=== PATIENT | female | born 1935 | race Caucasian/White ===

== ENCOUNTER 2023-07-20 18:12 | Emergency (ER) | payer MEDICARE ==
[~2023-07-20] VITALS: Ht 152.4 cm; Wt 62.1 kg
[2023-07-20 19:44] LABS: BASOPHILS # (AUTO) 0.05 K/uL (0.00-0.20); BASOPHILS % (AUTO) 0.7 % (0.0-5.0); EOSINOPHILS # (AUTO) 0.13 K/uL (0.00-0.70); EOSINOPHILS % (AUTO) 1.9 % (0.0-8.0); HEMATOCRIT 43.2 % (36-48); IMMATURE GRANULOCYTE ABSOLUTE 0.04 K/uL (0-1); LYMPHOCYTES % (AUTO) 29.4 % (21.0-51.0); MEAN CORPUSCULAR HEMOGLOBIN 34.2 pg (27.0-33.0); MEAN CORPUSCULAR HGB CONC 33.6 g/dL (32.0-36.0); MEAN CORPUSCULAR VOLUME 101.9 fL (79-99); MONOCYTES # (AUTO) 0.6 K/uL (0.1-1.0); MONOCYTES % (AUTO) 8.3 % (3.0-13.0); NEUTROPHILS # (AUTO) 4.1 K/uL (1.8-7.7); NEUTROPHILS % (AUTO) 59.1 % (40.0-77.0); PLATELET COUNT (AUTO) 189 K/uL (130-400); RED BLOOD CELL COUNT(AUTO) 4.24 MIL/uL (4.00-5.50); RED CELL DISTRIBUTION WIDTH 12.6 % (11.0-15.5)
[2023-07-20 20:03] LABS: ALBUMIN 3.3 g/dL (3.5-5.0); BILIRUBIN,TOTAL 0.3 mg/dL (0.2-1.0); CREATININE 0.7 mg/dL (0.5-1.0); POTASSIUM 4.3 mmol/L (3.5-5.1); TOTAL PROTEIN, SERUM 6.6 g/dL (6.0-8.3)
[2023-07-20 21:27] VITALS: BP 136/61; PULSE 63; RESP 18; O2SAT 97
== END 2023-07-20 21:28 | disposition home or self-care (01) ==
LOC: EDH 18:12
DX: S00.93XA Contusion of unspecified part of head, initial encounter (principal); F10.129 Alcohol abuse with intoxication, unspecified; W18.39XA Other fall on same level, initial encounter; Y93.89 Activity, other specified; Y92.89 Other specified places as the place of occurrence of the external cause; Y99.8 Other external cause status
CPT/HCPCS: 36415; 70450; 71045; 71250; 72125; 74176; 80053; 85025; 93005

== ENCOUNTER 2023-12-14 18:08 | Observation (INO) | payer MEDICARE ==
[~2023-12-14] VITALS: Ht 162.6 cm; Wt 59.9 kg
[2023-12-14 18:22] VITALS: O2SAT 98
[2023-12-14] MEDS: LIDOCAINE HCL 1% 20 ML VIAL INJ STA (18:40)
[2023-12-14] MEDS: DIPH,PERTUSS(ACELL),TET VAC/PF 0.5 ML VIAL IM ONE (18:42)
[2023-12-14 19:46] LABS: BASOPHILS # (AUTO) 0.03 K/uL (0.00-0.20); BASOPHILS % (AUTO) 0.4 % (0.0-5.0); EOSINOPHILS # (AUTO) 0.11 K/uL (0.00-0.70); EOSINOPHILS % (AUTO) 1.5 % (0.0-8.0); HEMATOCRIT 45.5 % (36-48); IMMATURE GRANULOCYTE ABSOLUTE 0.01 K/uL (0-1); LYMPHOCYTES # (AUTO) 2.4 K/uL (1.0-4.8); LYMPHOCYTES % (AUTO) 32.9 % (21.0-51.0); MEAN CORPUSCULAR HEMOGLOBIN 32.6 pg (27.0-33.0); MEAN CORPUSCULAR HGB CONC 33.8 g/dL (32.0-36.0); MEAN CORPUSCULAR VOLUME 96.4 fL (79-99); MONOCYTES # (AUTO) 0.5 K/uL (0.1-1.0); MONOCYTES % (AUTO) 7.3 % (3.0-13.0); NEUTROPHILS # (AUTO) 4.2 K/uL (1.8-7.7); NEUTROPHILS % (AUTO) 57.8 % (40.0-77.0); PLATELET COUNT (AUTO) 177 K/uL (130-400); RED BLOOD CELL COUNT(AUTO) 4.72 MIL/uL (4.00-5.50); RED CELL DISTRIBUTION WIDTH 12.5 % (11.0-15.5); WHITE BLOOD COUNT (AUTO) 7.2 K/uL (4.8-10.8)
[2023-12-14] MEDS ORDERED: BUPR100T13 PO (19:53)
[2023-12-14] MEDS ORDERED: DONE5TAB33 PO (19:55)
[2023-12-14] MEDS ORDERED: AMLO-257 PO (19:56)
[2023-12-14] MEDS ORDERED: SERT-439 PO (19:56)
[2023-12-14] MEDS ORDERED: MEMA10TA21 PO (19:57)
[2023-12-14] MEDS: DEXTROSE 5 % AND 0.9 % NACL 1,000 ML IV ONE (20:01)
[2023-12-14] MEDS: THIAMINE HCL 100 MG/ML 2ML VIAL IVP ONE (20:01)
[2023-12-14 20:05] LABS: CREATININE 0.8 mg/dL (0.5-1.0); POTASSIUM 3.6 mmol/L (3.5-5.1)
[2023-12-14] MEDS ORDERED: acetaMINOPHEN 650 MG SUPPOSITORY RC PRN (20:30)
[2023-12-14] MEDS ORDERED: hydrALAZine 20MG/ML VIAL IV PRN (20:30)
[2023-12-14] MEDS ORDERED: TEMAZepam 15 MG CAPSULE PO PRN (20:30)
[2023-12-14] MEDS ORDERED: ondanSETRON 4MG INJ IVP PRN (20:30)
[2023-12-14] MEDS ORDERED: LACTULOSE 20 GM/30 ML UDCUP PO PRN (20:30)
[2023-12-14] MEDS ORDERED: doCUSate SODIUM 100 MG CAP PO PRN (20:30)
[2023-12-14] MEDS: INSULIN humuLIN R 100 UNIT/ML 3ML SQ SCH (21:00)
[2023-12-14 21:30] VITALS: BP 167/79; PULSE 93; RESP 19; TEMP 98
[2023-12-14 21:54] VITALS: BP 135/69
[2023-12-14] MEDS: acetaMINOPHEN 325 MG TAB PO PRN (22:23)
[2023-12-15 01:00] VITALS: BP 135/70; PULSE 71; RESP 20; TEMP 97.1
[2023-12-15] MEDS: ketOROlac 30MG VIAL (30MG/ML) IVP ONE (02:48)
[2023-12-15 05:40] LABS: BASOPHILS # (AUTO) 0.04 K/uL (0.00-0.20); BASOPHILS % (AUTO) 0.5 % (0.0-5.0); EOSINOPHILS # (AUTO) 0.14 K/uL (0.00-0.70); EOSINOPHILS % (AUTO) 1.9 % (0.0-8.0); HEMATOCRIT 44.7 % (36-48); IMMATURE GRANULOCYTE ABSOLUTE 0.02 K/uL (0-1); LYMPHOCYTES # (AUTO) 2.1 K/uL (1.0-4.8); MEAN CORPUSCULAR HEMOGLOBIN 32.5 pg (27.0-33.0); MEAN CORPUSCULAR HGB CONC 33.8 g/dL (32.0-36.0); MEAN CORPUSCULAR VOLUME 96.3 fL (79-99); MONOCYTES # (AUTO) 0.6 K/uL (0.1-1.0); MONOCYTES % (AUTO) 8.5 % (3.0-13.0); NEUTROPHILS # (AUTO) 4.6 K/uL (1.8-7.7); NEUTROPHILS % (AUTO) 60.8 % (40.0-77.0); PLATELET COUNT (AUTO) 163 K/uL (130-400); RED BLOOD CELL COUNT(AUTO) 4.64 MIL/uL (4.00-5.50); RED CELL DISTRIBUTION WIDTH 12.4 % (11.0-15.5); WHITE BLOOD COUNT (AUTO) 7.5 K/uL (4.8-10.8)
[2023-12-15 05:43] LABS: APPEARANCE,URINE CLEAR (CLEAR); BILIRUBIN,URINE NEGATIVE (NEGATIVE); COLOR,URINE COLORLESS (YELLOW); GLUCOSE, URINE (UA) NEGATIVE (NEGATIVE); KETONES,URINE NEGATIVE (NEGATIVE); LEUKOCYTE ESTERASE ,URINE NEGATIVE Leu/uL (NEGATIVE); NITRATE,URINE NEGATIVE (NEGATIVE); OCCULT BLOOD,URINE NEGATIVE (NEGATIVE); PH,URINE 7.5 (5.0-8.0); PROTEIN,URINE NEGATIVE (NEGATIVE); UROBILINOGEN,URINE 0.2 mg/dL (0.2-1.0)
[2023-12-15 05:50] LABS: ADD UA MICROSCOPIC NO
[2023-12-15 06:10] LABS: CREATININE 0.6 mg/dL (0.5-1.0); MAGNESIUM 1.6 mg/dL (1.80-2.40); POTASSIUM 3.2 mmol/L (3.5-5.1); THYROID STIMULATING HORMONE 3.97 uIU/mL (0.36-3.74)
[2023-12-15] MEDS ORDERED: GLUCAGON 1MG KIT 1 MG ML IM PRN (06:30)
[2023-12-15] MEDS ORDERED: DEXTROSE 50%-WATER 50 ML DISP.SYRIN IV PRN (06:30)
[2023-12-15] MEDS ORDERED: PoTASSium chloRIDE 20MEQ/100ML 100 ML IV PRN (06:30)
[2023-12-15] MEDS ORDERED: PoTASSium chl 10% ELIXIR 20MEQ 20 MEQ/15 ML UDCUP PO PRN (06:30)
[2023-12-15] MEDS: PoTASSium chloRIDE 20MEQ ER 20 MEQ ERTAB PO PRN (06:50)
[2023-12-15] MEDS: MAGNESIUM 2GM PREMIX 50ML 50 ML IV PRN (06:51)
[2023-12-15 08:00] VITALS: BP 144/94; PULSE 70; RESP 16; TEMP 97.8
[2023-12-15] MEDS: doNEPEZil HCL 5 MG TAB PO SCH (08:51)
[2023-12-15] MEDS: amLODIPine 5 MG TAB PO SCH (08:52)
[2023-12-15] MEDS: ENOXAPARIN SODIUM 40 MG/0.4 ML SYRINGE SQ SCH (08:52)
[2023-12-15] MEDS: MEMANtine HCL 5 MG TABLET PO SCH (08:52)
[2023-12-15 12:00] VITALS: BP 173/76; PULSE 64; RESP 16; TEMP 97.5
[2023-12-15 16:00] VITALS: BP 169/81; PULSE 73; RESP 16; TEMP 98.3
[2023-12-16] MEDS ORDERED: BACITRACIN 28.4 GM OINT TP ONE (09:00)
[2023-12-16] MEDS ORDERED: THIAMINE HCL 100 MG TABLET PO SCH (09:00)
[2023-12-16] MEDS ORDERED: MULTIVITAMIN TABLET PO SCH (09:00)
[2023-12-16] MEDS ORDERED: FOLic ACID 1 MG TABLET PO SCH (09:00)
== END 2023-12-15 16:48 | disposition home or self-care (01) ==
LOC: EDH 18:08 → EDHIP 19:59 → 3DH 21:31
PROVIDERS: ADMIT Internal Medicine Critical Care Medicine; ATTEND Internal Medicine Critical Care Medicine
DX: S01.81XA Laceration without foreign body of other part of head, initial encounter (principal); F10.129 Alcohol abuse with intoxication, unspecified; I10 Essential (primary) hypertension; F03.90 Unspecified dementia, unspecified severity, without behavioral disturbance, psychotic disturbance, mood disturbance, and anxiety; G31.9 Degenerative disease of nervous system, unspecified; F41.9 Anxiety disorder, unspecified; Z63.4 Disappearance and death of family member; Z91.81 History of falling; Z79.899 Other long term (current) drug therapy; Z23 Encounter for immunization; W19.XXXA Unspecified fall, initial encounter; Y93.89 Activity, other specified; Y92.89 Other specified places as the place of occurrence of the external cause; Y99.8 Other external cause status
CPT/HCPCS: 96374; 96361; 99285; 80048 ×2; 85025 ×2; 82948 ×3; 36415 ×2; 90715; 70450; 72125; 90471; 96372; 96375; 84443; 83735; 84100; 81003; G0378 ×21; J3411; J3475; J1885; J1650

== ENCOUNTER 2024-07-07 19:41 | Observation (INO) | payer MEDICARE ==
[~2024-07-07] VITALS: Ht 152.4 cm; Wt 58.5 kg
[~2024-07-07 19:41] MED LIST: AMLO-257 PO; BUPR100T13 PO; DONE5TAB33 PO; MEMA10TA21 PO; SERT-439 PO
[2024-07-07] MEDS ORDERED: 0.9%NACL 1000ML 1,000 ML IV SCH (20:00)
--- NOTE | 2024-07-07 20:02 | ERN ---
ED Note History of Present Illness Stated Complaint: FALL, - LOC, - ANTICOAGULANTS, LAC TO L FOREHEAD Chief Complaint: Mechanical Fall Time Seen by MD: 19:45 Time Seen by Midlevel: 19:45 Dictation: The patient is an 89-year-old female with a history of dementia who presents to the emergency department via EMS after a ground level fall. Patient is poor historian, history of dementia. Most information gathered from triage nurse and EMS. Apparently patient was found by provider. Reports that patient has been drinking today. No use of anticoagulation, no reported LOC. patient reports he is unable to recall how she fell. Reports headache. Denies any abdominal pain, chest pain, back pain, extremity pain Allergies: Coded Allergies: No Known Drug Allergies (Unverified Allergy, Unknown, 07/20/23) Home Meds Reported Medications Memantine HCl (Memantine HCl) 10 Mg Tablet, 1 TAB PO BID for 30 Days, #60 TAB 0 Refills 12/14/23 Sertraline HCl (Sertraline HCl) 50 Mg Tablet, 1 TAB PO DAILY for 30 Days, #30 TAB 0 Refills 12/14/23 Amlodipine Besylate (Amlodipine Besylate) 5 Mg Tablet, 5 MG PO DAILY, TAB 12/14/23 Donepezil HCl (Donepezil HCl) 5 Mg Tablet, 1 TAB PO DAILY for 30 Days, #30 TAB 0 Refills 12/14/23 Bupropion HCl (Bupropion HCl) 100 Mg Tablet, 100 MG PO DAILY, TAB 12/14/23 Past Medical History Past Medical History: Dementia, Hypertension Surgical History: None RN Note Reviewed/Agreed w/PFSH: Yes Review of System Dictation Constitutional: Negative for fever,chills, and weight loss Eyes: Negative for injury, pain,redness, and discharge ENT: Negative for injury,pain or swelling Cardiovascular: Negative for chest pain, palpitations, and edema Respiratory: Negative for shortness of breath, cough, and wheezing, Abdomen/GI: Negative for abdominal pain, nausea, vomiting, diarrhea, and constipation Back: Negative for injury and pain : Negative for injury, bleeding and discharge MS/Extremity: Negative for injury and deformity Skin: Negative for rash, and discoloration positive for skin tear forehead Neuro: Negative for weakness, numbness, tingling, and seizure positive for headache Psych: Negative for suicide ideation, homicidal ideation, and hallucinations Initial Vital Sign VS Vital Signs Date Time Temp Pulse Resp B/P (MAP) Pulse Ox O2 Delivery O2 Flow Rate FiO2 07/07/24 19:43 98.4 70 16 129/75 94 Room Air 0 07/07/24 20:28 21 Physical Exam Dictation Vital Signs reviewed General Appearance: Alert, oriented x 1, no acute distress, well developed, nourished. Head and Face: Skin tear to left temporal area. Eyes: PERRL, pink conjunctivas, eyelid no trauma, anterior chamber with arcus senilis. Ears: Pinnas intact and no signs of trauma or erythema ear canals clear and no discharge TM no erythema Nose: No discharge, no bleeding. Oropharynx: Mouth normal, tongue pink. pharynx clear,no erythema, tonsils no exudates, no abscesses noted, mucous membrane moist Neck: Supple, non-tender, no thyromegaly, no masses, no JVD, no bruits Breast:Deferred Chest:No tenderness, no crepitus, no paradoxical movement, no retractions Lungs:Clear, well-ventilated, symmetric, no rales, no wheezing, no rhonchi, no stridor, good breath sounds bilaterally Heart: Regular rate, regular rhythm, no murmur, no gallops Vascular: no peripheral edema, Abdomen: Soft, positive bowel sounds, nondistended, no guarding, nontender, no rebound, no masses no hepatomegaly, no splenomegaly, no Law's sign, no hernias. Rectal: Deferred Genital: Deferred Neurological: Normal speech, motor function intact, sensory function intact Musculoskeletal: Neck nontender, full range of motion, back nontender, full range of motion, Extremities: nontender, full range of motion Skin: Color pink, dry, no turgor, no rash, no lacerations, no abrasions, no contusions. Lymphatic: Deferred Results (Laboratory/Radiology) Laboratory/Radiology Laboratory Tests Test 07/07/24 20:07 07/07/24 22:27 White Blood Count 6.0 K/uL (4.8-10.8) Red Blood Count 4.54 MIL/uL (4.00-5.50) Hemoglobin 15.2 g/dL (12.0-16.0) Hematocrit 44.5 % (36-48) Mean Corpuscular Volume 98.0 fL (79-99) Mean Corpuscular Hemoglobin 33.5 pg (27.0-33.0) H Mean Corpuscular Hemoglobin Concent 34.2 g/dL (32.0-36.0) Red Cell Distribution Width 12.6 % (11.0-15.5) Platelet Count 166 K/uL (130-400) Mean Platelet Volume 9.5 fL (7.5-10.5) Immature Granulocyte % (Auto) 0.3 % (0-1) Neutrophils (%) (Auto) 54.8 % (40.0-77.0) Lymphocytes (%) (Auto) 36.1 % (21.0-51.0) Monocytes (%) (Auto) 6.3 % (3.0-13.0) Eosinophils (%) (Auto) 2.0 % (0.0-8.0) Basophils (%) (Auto) 0.5 % (0.0-5.0) Neutrophils # (Auto) 3.3 K/uL (1.8-7.7) Lymphocytes # (Auto) 2.2 K/uL (1.0-4.8) Monocytes # (Auto) 0.4 K/uL (0.1-1.0) Eosinophils # (Auto) 0.12 K/uL (0.00-0.70) Basophils # (Auto) 0.03 K/uL (0.00-0.20) Absolute Immature Granulocyte (auto 0.02 K/uL (0-1) Nucleated Red Blood Cells 0.0 % (0.0-0.19) Prothrombin Time 10.9 SEC (9.6-11.6) Prothromb Time International Ratio 1.03 (0.85-1.15) Activated Partial Thromboplast Time 23.6 SEC (26.3-35.5) L Sodium Level 144 mmol/L (136-145) Potassium Level 3.4 mmol/L (3.5-5.1) L Chloride Level 108 mmol/L (101-111) Carbon Dioxide Level 27 mmol/L (21-32) Blood Urea Nitrogen 14 mg/dL (7-18) Creatinine 0.9 mg/dL (0.5-1.0) Glomerular Filtration Rate Calc 61 mL/min (>90) Random Glucose 96 mg/dL (70-105) Total Calcium 8.6 mg/dL (8.5-10.1) Total Creatine Kinase 63 U/L (21-232) Troponin I High Sensitivity 6.4 ng/L (4-50) Serum Alcohol 118 mg/dL (0-10) H Urine Color YELLOW (YELLOW) Urine Appearance CLOUDY (CLEAR) H Urine pH 6.0 (5.0-8.0) Urine Specific [place] 1.015 (1.001-1.031) Urine Protein 10 mg/dL (NEGATIVE) H Urine Glucose (UA) NEGATIVE mg/dL (NEGATIVE) Urine Ketones NEGATIVE mg/dL (NEGATIVE) Urine Occult Blood LARGE (NEGATIVE) H Urine Nitrate 1+ (NEGATIVE) H Urine Bilirubin NEGATIVE mg/dL (NEGATIVE) Urine Urobilinogen 0.2 mg/dL (0.2-1.0) Urine Leukocyte Esterase 75 [place]/uL (NEGATIVE) H Urine RBC TNTC /HPF (0-1) H Urine WBC 11-25 /HPF (0-1) H Urine Squamous Epithelial Cells RARE /HPF (0-2) Urine Bacteria MOD /HPF (None Seen) Urine Opiates Screen NEGATIVE (NEGATIVE) Urine Barbiturates Screen NEGATIVE (NEGATIVE) Urine Phencyclidine Screen NEGATIVE (NEGATIVE) Urine Amphetamines Screen NEGATIVE (NEGATIVE) Urine Benzodiazepines Screen NEGATIVE (NEGATIVE) Urine Cocaine Screen NEGATIVE (NEGATIVE) Urine Marijuana (THC) Screen NEGATIVE (NEGATIVE) REASON: fall,head strike ORDERING PHYSICIAN: JOLANTA RICO OIL PRODUCER PROCEDURE: HEAD WO - CT HEAD/BRAIN W/O CONTRAST CT HEAD/BRAIN W/O CONTRAST HISTORY: Status post fall COMPARISON: None TECHNIQUE: Multiple sequential axial images of the head were obtained from the base of the skull through vertex. Patient was not given contrast through intravenous route. FINDINGS: The ventricles and extraventricular CSF spaces are dilated consistent with cerebral atrophy. Nonspecific white matter changes seen. There is no midline shift, mass effect or herniation. No acute intracranial bleed is seen. Visualized portion of the paranasal sinuses are grossly within normal limits. IMPRESSION: 1. No acute intracranial bleed is seen. 2. Atrophy with white matter changes. CT was performed with one or more following dose reduction techniques: automated exposure control, adjustment of the mA and kv according to patient's size, or use of a iterative reconstruction technique. REASON: fall ORDERING PHYSICIAN: JOLANTA RICO OIL PRODUCER PROCEDURE: CXR1VW - CHEST 1VW CHEST 1VW HISTORY: Status post fall COMPARISON: 07/20/2023 FINDINGS: A frontal projection of the chest was obtained. No acute pulmonary infiltrates is seen. The heart is borderline enlarged. No evidence of aortic calcification is seen. IMPRESSION: 1. No acute pulmonary infiltrate is seen. REASON: fall,head strike ORDERING PHYSICIAN: JOLANTA RICO PROCEDURE: C SPIN WO - CT CERVICAL SPINE W/O CONTRAST CT CERVICAL SPINE W/O CONTRAST HISTORY: Status post fall COMPARISON: None TECHNIQUE: Multiple sequential axial images of the cervical spine were obtained including post processing sagittal and coronal reconstruction images. Patient was not given contrast through intravenous route. FINDINGS: There is straightening of normal lordotic cervical curvature which may be related to muscle spasm or positioning. Bone osteopenia is seen. Disc space narrowing are seen at C4-5, C5-6 and C6-7 levels. There are degenerative changes in the cervical spine spondylosis. There is atherosclerosis. Central canal narrowing is seen. There is no loss of vertebral height. Evaluation for disc and cord pathology is limited with CT study. No evidence of fracture or dislocation is seen. IMPRESSION: 1. No fracture is seen. Degenerative changes with cervical spine spondylosis and central canal narrowing. Labs Reviewed?: Yes EKG: (+) rhythm (Sinus rhythm) EKG Comment: Date:07/07/2024 Time:1958 Ventricular rate:69 HI interval:173 QRS duration:97 QT/QTc:461 EKG interpretation: Sinus rhythm, left ventricular hypertrophy Reviewed by ED Attending no STEMI ED Course ED Course Orders Procedure Category Date Status Time Cbc With Differential LAB 07/07/24 Complete 19:52 Chest 1vw RAD 07/07/24 Resulted 19:52 12 Lead Ekg Tracing- EKG 07/07/24 Logged Technical 19:52 0.9%Nacl 1000ml (Ns PHA 07/07/24 Complete 1000ml) 20:00 Urinalysis Profile LAB 07/07/24 Complete 19:52 Basic Metabolic Panel LAB 07/07/24 Complete 19:52 Alcohol, Blood LAB 07/07/24 Complete 19:52 Ct Head/Brain W/O CT 07/07/24 Resulted Contrast 19:52 Ct Cervical Spine W/O CT 07/07/24 Resulted Contrast 19:52 Wound Care (Er) CPOE 07/07/24 Transmitted 19:55 M.V.I. Iv [Adult] PHA 07/07/24 In Process (M.V.I. Iv [Adult])... 21:00 Pt And Ptt LAB 07/07/24 Complete 20:03 Cardiac Panel LAB 07/07/24 Complete 20:07 Dermabond (Dermabond) PHA 07/07/24 Complete 21:30 Drug Screen Urine LAB 07/07/24 Complete 21:53 Admit Orders ADM 07/07/24 Transmitted 21:53 Edm Admit Bridge Order ADM 07/07/24 Transmitted 22:14 Vital Signs Every 4 CPOE 07/07/24 Transmitted Hours 22:15 Activity: Br W/Brp CPOE 07/07/24 Transmitted With Assist 22:15 Heart Healthy Diet DIET 07/08/24 Transmitted Breakfast O2 Order RT 07/07/24 Transmitted 22:15 Cbc Without LAB 07/08/24 Verified Differential 04:00 Basic Metabolic Panel LAB 07/08/24 Verified 04:00 Magnesium LAB 07/08/24 Verified 04:00 Phosphorus LAB 07/08/24 Verified 04:00 Thyroid Stimulating LAB 07/08/24 Verified Hormone 04:00 Folic Acid 1 Mg PHA 07/08/24 In Process Tablet (Folic Acid 1 09:00 Thiamine Hcl (Vitamin PHA 07/08/24 In Process B-1) 09:00 Pantoprazole 40mg Tab PHA 07/08/24 In Process (Protonix 40mg Tab 09:00 Enoxaparin Sodium 30 PHA 07/08/24 In Process Mg/0.3 Ml (Lovenox) 09:00 Acetaminophen 325 Tab PHA 07/07/24 In Process (Tylenol 325mg Tab 22:30 Acetaminophen 650mg PHA 07/07/24 In Process Supp (Tylenol 650mg 22:30 Lactulose 20 Gm/30 Ml PHA 07/07/24 In Process Udcup (Constulose 22:30 Docusate Sodium 100 PHA 07/07/24 In Process Mg Cap (Colace 100mg 22:30 Ondansetron 4mg Inj PHA 07/07/24 In Process (Zofran 4mg Inj) 22:30 Labetalol 20mg Syg PHA 07/07/24 In Process (Trandate 20mg Syg) 22:30 Apply Scds CPOE 07/07/24 Transmitted 22:15 Telemetry Monitoring CPOE 07/07/24 Transmitted 22:15 Initiate MAMTA 07/07/24 In Process Hyperglycemia Protoco 22:15 Insulin Regular, PHA 07/08/24 In Process Human 3ml (Humulin R 07:30 Hemoglobin A1c LAB 07/08/24 Verified 04:00 Culture Urine AIXA 07/07/24 In Process 22:52 Vital Signs Date Time Temp Pulse Resp B/P (MAP) Pulse Ox O2 Delivery O2 Flow Rate FiO2 07/07/24 20:28 64 18 128/64 98 Room Air* 0 21 07/07/24 19:43 98.4 70 16 129/75 94 Room Air 0 Medical Decision Making MDM MDM: The patient is an 89-year-old female with a history of dementia who presents to the emergency department via EMS after a ground level fall. Patient is poor historian, history of dementia. Most information gathered from triage nurse and EMS. Apparently patient was found by provider. Reports that patient has been drinking today. No use of anticoagulation, no reported LOC. patient reports he is unable to recall how she fell. Reports headache. Denies any abdominal pain, chest pain, back pain, extremity pain. CBC showed no leukocytosis, no anemia, chemistry showed mild hypo kalemia, GFR of 61, negative troponin coagulation unremarkable, serum alcohol 118, toxicology negative, urinalysis positive for leukocyte esterase, positive nitrites. Patient with a superficial laceration to forehead which was cleaned and Dermabond. Patient received Tdap on previous visit. Patient tolerated procedure well. Patient will be admitted for observation due to unwitnessed fall in poor historian. Differential diagnosis: Intracerebral hemorrhage, alcohol intoxication, dehydration, syncope Comorbidities: Dementia Tests considered and not ordered secondary to shared decision making include: none Previous outside records reviewed: none Risk of complication and/or morbidity or mortality of patient management: The patient meets criteria for admission. Need for emergency major/minor surgery: No There are no social concerns with this patient. I independently interpreted the tests I ordered (labs, urinalysis, etc.). I discussed the case with the hospitalist for admission. Ruma KLINE who accents admission I discussed the case with the following specialists: none. Historian: pateint. I independently interpreted imaging studies and EKGs that I ordered (US, CT, XR, EKG, etc.). External chart review: none. Medical management and examination interpretation discussions were had by me with other qualified healthcare professionals as indicated for the patient's care. Procedure Procedure Dictation: Time and Date Performed:07/07/2024 INDICATION: Laceration Location: Forehead Informed consent was obtained. Pre-procedure time out was obtained. Anesthetic: None Manual prep of skin and wound was done with hibiclens. Foreign Body: NO foreign bodies were identified. Length Repaired:2cm Dermabond Wound Location: face Wound Length (cm): 2 Wound Explored: clean Wound Repaired With: Dermabond DX & DISP Disposition: Observation Decision to Admit Date: July 07, 2024 Decision to Admit Time: 21:53 Departure Impression: Primary Impression: Fall Additional Impressions: Head contusion, Alcohol intoxication, Dementia, UTI (urinary tract infection) Condition: Stable Referrals: LINDA SHEA MD (PCP) I have reviewed the case, and I agree with, Diagnosis and Plan JOLANTA RICO July 07, 2024 20:02
[2024-07-07 20:20] LABS: BASOPHILS # (AUTO) 0.03 K/uL (0.00-0.20); BASOPHILS % (AUTO) 0.5 % (0.0-5.0); EOSINOPHILS # (AUTO) 0.12 K/uL (0.00-0.70); HEMATOCRIT 44.5 % (36-48); IMMATURE GRANULOCYTE ABSOLUTE 0.02 K/uL (0-1); LYMPHOCYTES # (AUTO) 2.2 K/uL (1.0-4.8); LYMPHOCYTES % (AUTO) 36.1 % (21.0-51.0); MEAN CORPUSCULAR HEMOGLOBIN 33.5 pg (27.0-33.0); MEAN CORPUSCULAR HGB CONC 34.2 g/dL (32.0-36.0); MONOCYTES # (AUTO) 0.4 K/uL (0.1-1.0); MONOCYTES % (AUTO) 6.3 % (3.0-13.0); NEUTROPHILS # (AUTO) 3.3 K/uL (1.8-7.7); NEUTROPHILS % (AUTO) 54.8 % (40.0-77.0); PLATELET COUNT (AUTO) 166 K/uL (130-400); RED BLOOD CELL COUNT(AUTO) 4.54 MIL/uL (4.00-5.50); RED CELL DISTRIBUTION WIDTH 12.6 % (11.0-15.5)
[2024-07-07 20:29] LABS: CREATININE 0.9 mg/dL (0.5-1.0); POTASSIUM 3.4 mmol/L (3.5-5.1)
--- NOTE | 2024-07-07 20:36 | NUR ---
PT TO CT AT THIS TIME.
[2024-07-07 20:44] LABS: INR 1.03 (0.85-1.15); PROTHROMBIN TIME 10.9 SEC (9.6-11.6)
[2024-07-07 20:45] LABS: PARTIAL THROMBOPLASTIN TIME 23.6 SEC (26.3-35.5)
--- NOTE | 2024-07-07 20:48 | HMCIMG ---
CT HEAD/BRAIN W/O CONTRAST HISTORY: Status post fall COMPARISON: None TECHNIQUE: Multiple sequential axial images of the head were obtained from the base of the skull through vertex. Patient was not given contrast through intravenous route. FINDINGS: The ventricles and extraventricular CSF spaces are dilated consistent with cerebral atrophy. Nonspecific white matter changes seen. There is no midline shift, mass effect or herniation. No acute intracranial bleed is seen. Visualized portion of the paranasal sinuses are grossly within normal limits. IMPRESSION: 1. No acute intracranial bleed is seen. 2. Atrophy with white matter changes. CT was performed with one or more following dose reduction techniques: automated exposure control, adjustment of the mA and kv according to patient's size, or use of a iterative reconstruction technique.
--- NOTE | 2024-07-07 20:56 | HMCIMG ---
CT CERVICAL SPINE W/O CONTRAST HISTORY: Status post fall COMPARISON: None TECHNIQUE: Multiple sequential axial images of the cervical spine were obtained including post processing sagittal and coronal reconstruction images. Patient was not given contrast through intravenous route. FINDINGS: There is straightening of normal lordotic cervical curvature which may be related to muscle spasm or positioning. Bone osteopenia is seen. Disc space narrowing are seen at C4-5, C5-6 and C6-7 levels. There are degenerative changes in the cervical spine spondylosis. There is atherosclerosis. Central canal narrowing is seen. There is no loss of vertebral height. Evaluation for disc and cord pathology is limited with CT study. No evidence of fracture or dislocation is seen. IMPRESSION: 1. No fracture is seen. Degenerative changes with cervical spine spondylosis and central canal narrowing. CT was performed with one or more following dose reduction techniques: automated exposure control, adjustment of the mA and kv according to patient's size, or use of a iterative reconstruction technique.
--- NOTE | 2024-07-07 20:57 | HMCIMG ---
CHEST 1VW HISTORY: Status post fall COMPARISON: 07/20/2023 FINDINGS: A frontal projection of the chest was obtained. No acute pulmonary infiltrates is seen. The heart is borderline enlarged. No evidence of aortic calcification is seen. IMPRESSION: 1. No acute pulmonary infiltrate is seen.
--- NOTE | 2024-07-07 20:58 | NUR ---
PT BACK FROM CT
[2024-07-07] MEDS: M.V.I. IV [ADULT] 10 ML, FOLic ACID 5 MG/ML VIAL 1 MG, THIAMINE HCL 100 MG in 0.9%NACL ... IV SCH (21:11)
--- NOTE | 2024-07-07 21:47 | NUR ---
SANYA SANCHEZ- BROTHER
[2024-07-07] MEDS: OCTYL 2-CYANOACRYLATE 1 EACH TP ONE (22:01)
[2024-07-07] MEDS ORDERED: ondanSETRON 4MG INJ IVP PRN (22:30)
[2024-07-07] MEDS ORDERED: acetaMINOPHEN 650 MG SUPPOSITORY RC PRN (22:30)
[2024-07-07] MEDS ORDERED: LACTULOSE 20 GM/30 ML UDCUP PO PRN (22:30)
[2024-07-07] MEDS ORDERED: doCUSate SODIUM 100 MG CAP PO PRN (22:30)
[2024-07-07 22:52] LABS: ADD UA MICROSCOPIC YES; APPEARANCE,URINE CLOUDY (CLEAR); BILIRUBIN,URINE NEGATIVE (NEGATIVE); COLOR,URINE YELLOW (YELLOW); GLUCOSE, URINE (UA) NEGATIVE (NEGATIVE); KETONES,URINE NEGATIVE (NEGATIVE); LEUKOCYTE ESTERASE ,URINE 75 Leu/uL (NEGATIVE); NITRATE,URINE 1+ (NEGATIVE); OCCULT BLOOD,URINE LARGE (NEGATIVE); PROTEIN,URINE 10 mg/dL (NEGATIVE); UROBILINOGEN,URINE 0.2 mg/dL (0.2-1.0)
[2024-07-07 22:54] LABS: BACTERIA,URINE MOD /HPF (None Seen); MUCUS,URINE RARE LPF (None Seen); RBC,URINE TNTC /HPF (0-1); SQUAMOUS EPITHELIAL CELL,UR RARE /HPF (0-2)
[2024-07-07 23:03] LABS: AMPHET/METH SCREEN,URINE NEGATIVE (NEGATIVE); BARBITURATE SCREEN, URINE NEGATIVE (NEGATIVE); BENZODIAZEPINES SCREEN,URINE NEGATIVE (NEGATIVE); CANNABINOID SCREEN,URINE NEGATIVE (NEGATIVE); COCAINE SCREEN,URINE NEGATIVE (NEGATIVE); OPIATE SCREEN,URINE NEGATIVE (NEGATIVE); PHENCYCLIDINE SCREEN,URINE NEGATIVE (NEGATIVE)
--- NOTE | 2024-07-07 23:28 | HP ---
[facility] HISTORY & PHYSICAL Date Patient Seen: July 07, 2024 Time of Visit: 23:28 Supervising Physician: Dr. Mei Primary Care Physician: Dr. Enoch Gibson Outpatient Specialists: Inpatient Consults: PROBLEM LIST: Forehead contusion/superficial laceration s/p fall requiring Dermabond Closed head injury without LOC Alcohol intoxication Acute kidney injury, GFR 61 (GFR range 71-87 from 07/20/2023 through 12/15/2023) Acute on chronic kidney disease Uncontrolled hypertension Prior ED visits for fall injury after alcohol consumption Chronic problem list: Hypertension, dementia, hard of hearing, uses hearing aids, alcoholism/ daily ETOH use. HPI: Ms. Geronimo is a 89-year-old female with a history of anxiety, dementia, alcoholism, and hypertension who presented to [facility] ED via EMS for evaluation of ground level fall. Per EMS patient has been using alcohol this afternoon and fell forward. The patient denied any LOC and known anticoagulants. The patient did sustain a superficial forehead laceration which was Dermabond by ED MINISTER HELPER. ED provider reported that when she asked the patient of how she fall the patient could not remember. ED provider request patient be admitted to the hospital due to an unwitnessed fall. Patient is current on tetanus shot. Per chart review patient presented to the ED on 06/20/2023 and 12/14/2023 for evaluation of fall s/p alcohol intoxication. CT of head: No acute intracranial bleed. Atrophy with white matter changes. Chest x-ray: No acute pulmonary infiltrates. CT cervical spine without contrast: No fractures. Degenerative changes with cervical spine. EKG: Sinus rhythm, left ventricular hypertrophy. Remarkable labs: GFR 61 (GFR 87 on 12/15/2023), serum alcohol 1UA positive for leuk EST. I assessed the patient in room number ER 16. Breathing was even, unlabored, appeared comfortable, in no distress. The patient is severely hard of hearing. The patient was awake, alert, conversive, oriented to self, place, and knows that she is in the hospital because she fell. The patient denied drinking any alcohol. Alcohol serum was 118. Patient was admitted by the [facility] team. I informed the patient the plan of care, and the patient is in agreement with the plan. PAST MEDICAL HX: see above PAST SURGICAL HX: noncontributory SOCIAL HISTORY: No tobacco or illicit drug use Daily alcohol use. Coded Allergies: No Known Drug Allergies (Unverified Allergy, Unknown, 07/20/23) REVIEW OF SYSTEMS: Unable to obtain ROS from patient due to patient is severely hard of hearing. PHYSICAL EXAM: GENERAL: alert, awake oriented x 3 HEENT: EOMI, Sclera non icteric, moist mucosa NECK: Supple, no JVD, trachea midline LUNGS: Clear breath sounds bilaterally. No wheezes HEART: Regular rate and rhythm. Normal S1 and S2, without murmurs ABD: Abdomen soft, nontender. Bowel sounds present EXT: No clubbing cyanosis or edema NEURO: Alert and oriented to person, place, situation, follows commands. Vital Signs (last 8hr) Date Time Temp Pulse Resp B/P (MAP) Pulse Ox O2 Delivery O2 Flow Rate FiO2 07/07/24 20:28 64 18 128/64 98 Room Air* 0 21 07/07/24 19:43 98.4 70 16 129/75 94 Room Air 0 LABS: Hematology Labs: Test 07/07/24 20:07 Range/Units White Blood Count 6.0 4.8-10.8 K/uL Red Blood Count 4.54 4.00-5.50 MIL/uL Hemoglobin 15.2 12.0-16.0 g/dL Hematocrit 44.5 36-48 % Mean Corpuscular Volume 98.0 79-99 fL Mean Corpuscular Hemoglobin 33.5 H 27.0-33.0 pg Mean Corpuscular Hemoglobin Concent 34.2 32.0-36.0 g/dL Red Cell Distribution Width 12.6 11.0-15.5 % Platelet Count 166 130-400 K/uL Mean Platelet Volume 9.5 7.5-10.5 fL Immature Granulocyte % (Auto) 0.3 0-1 % Neutrophils (%) (Auto) 54.8 40.0-77.0 % Lymphocytes (%) (Auto) 36.1 21.0-51.0 % Monocytes (%) (Auto) 6.3 3.0-13.0 % Eosinophils (%) (Auto) 2.0 0.0-8.0 % Basophils (%) (Auto) 0.5 0.0-5.0 % Neutrophils # (Auto) 3.3 1.8-7.7 K/uL Lymphocytes # (Auto) 2.2 1.0-4.8 K/uL Monocytes # (Auto) 0.4 0.1-1.0 K/uL Eosinophils # (Auto) 0.12 0.00-0.70 K/uL Basophils # (Auto) 0.03 0.00-0.20 K/uL Absolute Immature Granulocyte (auto 0.02 0-1 K/uL Nucleated Red Blood Cells 0.0 0.0-0.19 % Chemistry Labs: Test 07/07/24 20:07 Range/Units Sodium Level 144 136-145 mmol/L Potassium Level 3.4 L 3.5-5.1 mmol/L Chloride Level 108 101-111 mmol/L Carbon Dioxide Level 27 21-32 mmol/L Blood Urea Nitrogen 14 7-18 mg/dL Creatinine 0.9 0.5-1.0 mg/dL Glomerular Filtration Rate Calc 61 >90 mL/min Random Glucose 96 70-105 mg/dL Total Calcium 8.6 8.5-10.1 mg/dL Total Creatine Kinase 63 21-232 U/L Troponin I High Sensitivity 6.4 4-50 ng/L Coagulation Labs: Test 07/07/24 20:07 Range/Units Prothrombin Time 10.9 9.6-11.6 SEC Prothromb Time International Ratio 1.03 0.85-1.15 Activated Partial Thromboplast Time 23.6 L 26.3-35.5 SEC DIAGNOSTICS / RADIOLOGY RESULTS: [ ] PLAN Admit to medical floor with telemetry monitoring. Fall precaution. Education on alcohol cessation. Keep forehead wound clean and dry. Continue banana IV bag for tonight, stopped in a.m., then start a thiamine and folic acid. Start Rocephin 2 g IV. P.r.n. medications for: Pain, nausea, vomiting, constipation, fever, hypertension. Consult case management for discharge planning. Elderly patient with multiple falls at home after alcohol intoxication. DVT and GI prophylaxis: Lovenox and Protonix. NEURO: Minimize central acting medications as possible. Maintain fall precautions, adequate lighting during the day PULMONARY: Supplemental 02 as needed. Maintain aspiration precautions at all times CARDIOVASCULAR: Follow hemodynamics. Vital signs per facility protocol GI & NUTRITION: Continue with nutritional support. Continue stool softeners and laxatives as needed. KIDNEYS & ELECTROLYTES: Strict monitoring of intake, output and overall fluid balance. Avoid nephrotoxic medications to the extent possible. Medications to be dosed according to renal function. Monitor electrolytes and replace as needed ENDOCRINE: Maintain blood glucose between 100-180 at all times. Hypoglycemia protocol in place INFECTIOUS DISEASE: Trend temperature, WBC and procalcitonin level Follow cultures, deescalate antibiotics as soon as possible. Panculture if new onset fever ONCOLOGY/HEMATOLOGY/COAGULATION: Monitor for s/s of bleeding Monitor hemoglobin, coagulation studies as needed SKIN: Pressure ulcer prevention per facility protocol Specialty mattress ORTHO/REHAB: Continue PT/OT Prophylaxis: Continue GI and DVT prophylaxis Code Status: Full Resuscitation Disposition: RAMIREZ CHOWDHURY July 07, 2024 23:28
[2024-07-07] MEDS: cefTRIAXone 1G VIAL IVPB ONE (23:42)
[2024-07-08] VITALS (7 sets, daily range): BP systolic 153–185; BP diastolic 76–82; PULSE 65–70; RESP 17–19; TEMP 98–99.2; O2SAT 93–94
--- NOTE | 2024-07-08 | NUR ---
ADMISSION: PT RECEIVED FROM ER VIA STRETCHER, NO FAMILY MEMBERS AT BEDSIDE. PT IS AWAKE/ALERT TO NAME, PLACE BUT FORGETFUL. PT CAME IN DUE S/P FALL AND HAS LACERATION W/ DERMABOND, TO LEFT UPPER FOREHEAD. PT IS POOR HISTORIAN, AND VERY HARD OF HEARINGS. STATES SHE LOST HER HEARING AIDS AT HOME. HOME MEDICATIONS AT BEDSIDE, RECONCILED. MVI INFUSING AT 100 ML/HR TO RIGHT FOREARM, NO REDNESS, NO SWELLING, NO TENDERNESS NOTED. TELE # 27 PLACED TO CHEST WALL, VOICES NO CHEST PAIN/DISCOMFORTS. ORIENTED TO ROOM, SURROUNDINGS AND CALL LIGHT. S/R UP X 3, BED ALARM IN PLACE.
--- NOTE | 2024-07-08 01:20 | NUR ---
FORGETFUL: PT ATTEMPTING TO GET OUT OF BED AND TOOK OFF TELE PACK. TELE PLACED BACK TO CHEST WALL AND INSTRUCTED NOT TO TAKE OFF HEART MONITOR. PT ORIENTED TO ROOM, TIME, PLACE AND SITUATION. S/R UP X 3, BED ALARM IN PLACE.
[2024-07-08] MEDS ORDERED: DONE5TAB33 PO (01:22)
[2024-07-08] MEDS ORDERED: MELO-106 PO (01:24)
[2024-07-08 02:06] LABS: HEMOGLOBIN A1C 5.1 % (4.0-6.0)
--- NOTE | 2024-07-08 02:30 | NUR ---
BED ALARM: BED ALARM GOING OFF, PT ATTEMPTING TO GET OUT OF BED WITHOUT ASSISTANCE. PT IS FORGETFUL AND NEEDS TO BE ORIENTED AND REMINDED OF PLACE, TIME, SITUATION. PT TOOK OUT IV SITE TO RIGHT FOREARM, TELE AND SCDs. NEW IV SITE STARTED, 22G TO RIGHT FOREARM, NO REDNESS, NO SWELLING, NO TENDERNESS NOTED. IV SITE WRAPPED WITH COBAN DRESSING. INSTRUCTED PT NOT TO TAKE OFF TELE, IV SITE OR GET OUT OF BED WITHOUT ASSISTANCE. CALL SHEN WITHIN REACH, S/R UP X 3, BED ALARM IN PLACE.
--- NOTE | 2024-07-08 03:31 | NUR ---
FORGETFULNESS: PT GETTING OUT OF BED, ALARM GOING OFF. PT TOOK OFF MANAGER UROLOGY AND PULLING ON IV SITE. PT DOES NOT BELIEVE NURSING STAFF IT IS 0330 AM. PT ORIENTED TO TIME, PLACE AND SITUATION. PT THINKS SHE IS HOME AND NURSING STAFF IS FAMILY. S/R UP X 3, BED ALARM IN PLACE.
--- NOTE | 2024-07-08 03:55 | NUR ---
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 CHARGE NURSE MADE AWARE PT IS HIGH RISK FOR FALLS AND NEEDS A SITTER TO PREVENT FURTHER FALLS. 1:1 SITTER AT BEDSIDE. S/R UP X 3, BED ALARM IN PLACE.
[2024-07-08] MEDS: acetaMINOPHEN 325 MG TAB PO PRN (04:06)
[2024-07-08 05:29] LABS: HEMATOCRIT 45.1 % (36-48); MEAN CORPUSCULAR HGB CONC 33.9 g/dL (32.0-36.0); MEAN CORPUSCULAR VOLUME 97.2 fL (79-99); RED BLOOD CELL COUNT(AUTO) 4.64 MIL/uL (4.00-5.50); RED CELL DISTRIBUTION WIDTH 12.5 % (11.0-15.5); WHITE BLOOD COUNT (AUTO) 10.7 K/uL (4.8-10.8)
[2024-07-08 05:58] LABS: CREATININE 0.7 mg/dL (0.5-1.0); MAGNESIUM 1.5 mg/dL (1.80-2.40); PHOSPHORUS 2.5 mg/dL (2.5-4.9); POTASSIUM 3.4 mmol/L (3.5-5.1); THYROID STIMULATING HORMONE 5.5 uIU/mL (0.36-3.74)
[2024-07-08] MEDS ORDERED: DEXTROSE 50%-WATER 50 ML DISP.SYRIN IV PRN (06:00)
[2024-07-08] MEDS ORDERED: PoTASSium chloRIDE 20MEQ ER 20 MEQ ERTAB PO PRN (06:00)
[2024-07-08] MEDS ORDERED: PoTASSium chloRIDE 20MEQ/100ML 100 ML IV PRN (06:00)
[2024-07-08] MEDS ORDERED: GLUCAGON 1MG KIT 1 MG ML IM PRN (06:00)
[2024-07-08] MEDS: PoTASSium chl 10% ELIXIR 20MEQ 20 MEQ/15 ML UDCUP PO PRN (06:04)
[2024-07-08] MEDS: MAGNESIUM 2GM PREMIX 50ML 50 ML IV PRN (06:04)
[2024-07-08] MEDS: INSULIN humuLIN R 100 UNIT/ML 3ML SQ SCH (06:31)
--- NOTE | 2024-07-08 07:42 | EKG ---
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 : 1935 Requested By: JOLANTA RICO Order Number: [id number] Reading MD: Gurwinder Constantino Measurements Intervals [place] Rate: 69 P: 9 WI: 173 QRS: -38 QRSD: 97 T: 52 QT: 461 QTc: 496 Interpretive Statements Sinus rhythm Probable left ventricular hypertrophy Anterior Q waves, possibly due to LVH Compared to ECG 07/20/2023 19:29:35 Left ventricular hypertrophy now present Q waves now present Left-axis deviation no longer present Prolonged QT interval no longer present Electronically Signed On 07-08-2024 12:28:50 CDT by Gurwinder Constantino Please click the below link to view image of tracing.
[2024-07-08] MEDS: PANTOPrazole 40 MG TAB DR PO SCH (10:09)
[2024-07-08] MEDS: THIAMINE HCL 100 MG TABLET PO SCH (10:09)
[2024-07-08] MEDS: FOLic ACID 1 MG TABLET PO SCH (10:09)
[2024-07-08] MEDS: ENOXAPARIN SODIUM 30 MG/0.3 ML SQ SCH (10:10)
[2024-07-08] MEDS: CEFTRIAXONE 2GM VIAL IVPB SCH (10:10)
[2024-07-08 12:29] LABS: HEMATOCRIT 42.8 % (36-48); MEAN CORPUSCULAR HGB CONC 34.3 g/dL (32.0-36.0); RED BLOOD CELL COUNT(AUTO) 4.46 MIL/uL (4.00-5.50); RED CELL DISTRIBUTION WIDTH 12.5 % (11.0-15.5); WHITE BLOOD COUNT (AUTO) 9.1 K/uL (4.8-10.8)
[2024-07-08] MEDS ORDERED: THIAMINE HCL 100 MG/ML 2ML VIAL IVP ONE (12:30)
[2024-07-08 12:36] LABS: MAGNESIUM 2.2 mg/dL (1.80-2.40); POTASSIUM 3.2 mmol/L (3.5-5.1)
[2024-07-08] MEDS: THIAMINE HCL 300 MG in 0.9%NACL 100ML 100 ML IVPB ONE (13:15)
--- NOTE | 2024-07-08 15:13 | EKG ---
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: [id number] : 1935 Requested By: PHIL MOTT Order Number: [id number] Reading MD: Gurwinder Constantino Measurements Intervals [place] Rate: 65 P: 93 IA: 114 QRS: -35 QRSD: 86 T: 35 QT: 472 QTc: 490 Interpretive Statements Suspect unspecified pacemaker failure Atrial-paced rhythm Left axis deviation Compared to ECG 07/07/2024 19:59:11 Left-axis deviation now present Sinus rhythm no longer present Left ventricular hypertrophy no longer present Q waves no longer present Electronically Signed On 07-09-2024 11:08:32 CDT by Gurwinder Constantino Please click the below link to view image of tracing.
--- NOTE | 2024-07-08 16:22 | DS ---
[facility] DISCHARGE SUMMARY Date Patient Seen: July 08, 2024 Time of Visit: 16:22 Supervising Physician: [Dr. Mei] Primary Care Physician: Dr. Enoch Gibson Outpatient Specialists: Inpatient Consults: PROBLEM LIST: Forehead contusion/superficial laceration s/p fall requiring Dermabond Closed head injury without LOC Acute alcohol intoxication Acute kidney injury, GFR 61 (GFR range 71-87 from 07/20/2023 through 12/15/2023) Acute on chronic kidney disease Uncontrolled hypertension Chronic problem list: Hypertension, dementia, hard of hearing, uses hearing aids, alcoholism/ daily ETOH use. HOSPITAL COURSE: HPI (per admitting provider) Ms. Geronimo is a 89-year-old female with a history of anxiety, dementia, alcoholism, and hypertension who presented to [facility] ED via EMS for evaluation of ground level fall. Per EMS patient has been using alcohol this afternoon and fell forward. The patient denied any LOC and known anticoagulants. The patient did sustain a superficial forehead laceration which was Dermabond by ED SEASONAL WAREHOUSE ASSOCIATE. ED provider reported that when she asked the patient of how she fall the patient could not remember. ED provider request patient be admitted to the hospital due to an unwitnessed fall. Patient is current on tetanus shot. Per chart review patient presented to the ED on 06/20/2023 and 12/14/2023 for evaluation of fall s/p alcohol intoxication. CT of head: No acute intracranial bleed. Atrophy with white matter changes. Chest x-ray: No acute pulmonary infiltrates. CT cervical spine without contrast: No fractures. Degenerative changes with cervical spine. EKG: Sinus rhythm, left ventricular hypertrophy. Remarkable labs: GFR 61 (GFR 87 on 12/15/2023), serum alcohol 1UA positive for leuk EST. I assessed the patient in room number ER 16. Breathing was even, unlabored, appeared comfortable, in no distress. The patient is severely hard of hearing. The patient was awake, alert, conversive, oriented to self, place, and knows that she is in the hospital because she fell. The patient denied drinking any alcohol. Alcohol serum was 118. Patient was admitted by the BIS team. I informed the patient the plan of care, and the patient is in agreement with the plan. Patient was treated with IV fluids and banana bag with improvement in her hydration status. No acute findings noted per imaging. Patient's alcoholic intoxication resolved with hydration and time. Electrolytes replaced. She was able to ambulate on her own, tolerating diet. No new health concerns verbalized upon discharge. She will be discharged home with her brother who would help care for her. CHRONIC PROBLEMS: continue previous management per PCP unless otherwise indicated DISCHARGE MEDICATIONS: As previously taken Pt hemodynamically stable and afebrile at time of discharge. PCP notified of patient�s admission, hospital course and discharge. New Medications: Nitrofurantoin Macrocrystal (Nitrofurantoin) 100 Mg Capsule 1 CAP PO BID for 5 Days, #10 CAP 0 Refills Continued Medications: Amlodipine Besylate (Amlodipine Besylate) 5 Mg Tablet 5 MG PO DAILY, TAB Bupropion HCl (Bupropion HCl) 100 Mg Tablet 100 MG PO DAILY, TAB Donepezil HCl (Donepezil HCl) 5 Mg Tablet 5 MG PO HS, TAB Meloxicam (Meloxicam) 7.5 Mg Tablet 7.5 MG PO AD PRN for PAIN LEVEL 1 TO 5, #1 TAB BID PRN Memantine HCl (Memantine HCl) 10 Mg Tablet 1 TAB PO BID for 30 Days, #60 TAB 0 Refills Sertraline HCl (Sertraline HCl) 50 Mg Tablet 1 TAB PO DAILY for 30 Days, #30 TAB 0 Refills PHYSICAL EXAM: GENERAL: alert, awake oriented x 3 HEENT: EOMI, Sclera non icteric, moist mucosa, L-forehead abrasion, no active bleed NECK: Supple, no JVD, trachea midline LUNGS: Clear breath sounds bilaterally. No wheezes HEART: Regular rate and rhythm. Normal S1 and S2, without murmurs ABD: Abdomen soft, nontender. Bowel sounds present EXT: No clubbing cyanosis or edema NEURO: Alert and oriented to person, place, situation, follows commands. FOLLOW-UP: Follow-up with PCP in 2-3 days for repeat UA and TSH as well as routine evaluation. Complete antibiotics with Macrobid upon discharge. Stop alcoholic consumption. Basic topical wound care to forehead as discussed. RECOMMENDATIONS: See Discharge Instructions This case was seen and discussed with my supervising physician. More than 30 m inutes spent on discharge process, including evaluation of the patient, discussion with nursing staff, medication reconciliation and follow-up appointments PHIL MOTT July 08, 2024 16:22
[2024-07-08] MEDS: LAbetaLOL 20MG SYG IV PRN (16:36)
--- NOTE | 2024-07-08 16:42 | NUR ---
DCP: INITIAL ASSESSMENT Patient lives alone. She has no home services. Patient does have private caregiver X 4 week. DME: [employer]. Patient is able to complete ADLs independently and drives if needed. Brother will help with transportation as needed. PCP is Encoh Gibson. Pharmacy is [facility] in [place]. Patient voiced no safety concerns regarding returning home and states she has no difficulty with housing or buying food. DCP is home. Addendum: 07/08/24 at 1644 by MAHSA HERNANDEZ Amended: Links added.
[2024-07-08] MEDS ORDERED: NITR100C PO (17:34)
[2024-07-08] MEDS: PoTASSium chloRIDE 20MEQ ER 20 MEQ ERTAB PO ONE (18:09)
[2024-07-08] MEDS: amLODIPine 5 MG TAB PO SCH (18:10)
--- NOTE | 2024-07-08 18:13 | NUR ---
PATIENT DISCHARGED. IV REMOVED INTACT. TELEPACK REMOVED. NO PERSONAL BELONGING TO GIVE OTHER THAN HOME MEDICATIONS. [facility] GIVEN PRIOR TO DISCHARGE FOR BLOOD PRESSURE. FAMILY ASKING FOR PATIENT ID THAT WAS GIVEN TO PARAMEDICS ON ADMISSION. ADVISED THAT NO PERSONAL BELONGING ANYWHERE OTHER THAN PATIENTS ROOM. CALLED TO VERIFY WITH SECURITY OF ANY ITEM ON HOLD FOR PATIENT AND SECURITY DENIED HAVING ANY PATIENT ITEMS. ADVISED OF FOLLOW UP APPOINTMENT WITH PCP AFTER DISCHARGE. ALL QUESTIONS AND CONCERNS ANSWERED. PATIENT WHEELED DOWN TO FAMILY VEHICLE.
[2024-07-08] MEDS ORDERED: doNEPEZil HCL 5 MG TAB PO SCH (21:00)
[2024-07-08] MEDS ORDERED: MEMANtine HCL 5 MG TABLET PO SCH (21:00)
[2024-07-09] MEDS ORDERED: amLODIPine 5 MG TAB PO SCH (09:00)
[2024-07-09] MEDS ORDERED: SERTraline HCL 50 MG TABLET PO SCH (09:00)
--- NOTE | 2024-07-10 10:15 | NUR ---
Transitional Phone Call Spoke to Bruce Barr, Brother [phone], states "she is doing okay. She is 89 years old with dementia... no redness around the laceration." [facility] will warehouse picker the new prescription today; no questions or concerns at this time. [facility] patient will have her follow up appointment today 07/10/2024 at 1345 with PCP - Dr. Enoch Gibson. No questions or concerns at this time.
== END 2024-07-08 18:13 | disposition home or self-care (01) ==
LOC: EDH 19:41 → EDHIP 19:42 → 4DH 07-08
PROVIDERS: ADMIT Internal Medicine Critical Care Medicine; ATTEND Internal Medicine Critical Care Medicine
DX: S01.81XA Laceration without foreign body of other part of head, initial encounter (principal); R51.9 Headache, unspecified; N39.0 Urinary tract infection, site not specified; I13.10 Hypertensive heart and chronic kidney disease without heart failure, with stage 1 through stage 4 chronic kidney disease, or unspecified chronic kidney disease; N18.9 Chronic kidney disease, unspecified; N17.9 Acute kidney failure, unspecified; K59.00 Constipation, unspecified; F03.90 Unspecified dementia, unspecified severity, without behavioral disturbance, psychotic disturbance, mood disturbance, and anxiety; F41.9 Anxiety disorder, unspecified; F10.229 Alcohol dependence with intoxication, unspecified; R79.1 Abnormal coagulation profile; W18.30XA Fall on same level, unspecified, initial encounter; Y93.89 Activity, other specified; Y92.89 Other specified places as the place of occurrence of the external cause; Y99.8 Other external cause status; Z79.899 Other long term (current) drug therapy; Z98.890 Other specified postprocedural states
CPT/HCPCS: 93005 ×2; 81001; 96365; 96367 ×2; 99285; 83036; 82550; 84484; 80048 ×2; 80305; 85025; 85610; 85730; 87086 ×2; 87186; 36415 ×2; 71045; 70450; 72125; 12011; 84132; 96372; 96366; 96368; 84443; 83735 ×2; 84100; 85027 ×2; 82948 ×3; 84425; G0378 ×20; J7030; J0696 ×2; J3411 ×2; J3490; J3475; J1650

== ENCOUNTER 2025-02-09 13:14 | Emergency (ER) | payer MEDICARE ==
[~2025-02-09] VITALS: Ht 160 cm; Wt 59.9 kg
[2025-02-09 13:15] VITALS: BP 180/96; PULSE 68; RESP 20; TEMP 97.9
--- NOTE | 2025-02-09 13:23 | ERN ---
ED Note History of Present Illness Stated Complaint: HEADACHE Chief Complaint: Headache Time Seen by MD: 13:15 Dictation: PATIENT IS AN 89-YEAR-OLD FEMALE HERE WITH HER SON WITH COMPLAINTS OF HAVING A CONTINUOUS HEADACHE STATUS POST A FALL WHERE SHE STRUCK HER HEAD, APPROXIMATELY 10 DAYS AGO. HAS BEEN NO NAUSEA VOMITING NO PERSONALITY CHANGES PER THE SON. PATIENT HAS SAW HER PRIMARY CARE DOCTOR TODAY WHO ADVISED HER TO COME TO THE EMERGENCY ROOM FOR REPEAT CT TO RULE OUT A BLEED OR SUBDURAL. NIH IS 0 ON APPROACH HER SPEECH IS CLEAR. FOR PATIENT'S SON THERE WAS POSITIVE LOC WHEN SHE FELL 10 DAYS AGO AND WAS SEEN AT ANOTHER FACILITY. Allergies: Coded Allergies: No Known Drug Allergies (Unverified Allergy, Unknown, 07/20/23) Home Meds Active Scripts Nitrofurantoin Macrocrystal (Nitrofurantoin) 100 Mg Capsule, 1 CAP PO BID for 5 Days, #10 CAP 0 Refills Prov:PHIL MOTT PAC 07/08/24 Reported Medications Meloxicam (Meloxicam) 7.5 Mg Tablet, 7.5 MG PO AD PRN for PAIN LEVEL 1 TO 5, #1 TAB BID PRN 07/08/24 Donepezil HCl (Donepezil HCl) 5 Mg Tablet, 5 MG PO HS, TAB 07/08/24 Memantine HCl (Memantine HCl) 10 Mg Tablet, 1 TAB PO BID for 30 Days, #60 TAB 0 Refills 12/14/23 Sertraline HCl (Sertraline HCl) 50 Mg Tablet, 1 TAB PO DAILY for 30 Days, #30 TAB 0 Refills 12/14/23 Amlodipine Besylate (Amlodipine Besylate) 5 Mg Tablet, 5 MG PO DAILY, TAB 12/14/23 Bupropion HCl (Bupropion HCl) 100 Mg Tablet, 100 MG PO DAILY, TAB 12/14/23 Past Medical History Past Medical History: Dementia, Hypertension Surgical History: None History: Not Applicable RN Note Reviewed/Agreed w/PFSH: Yes Review of System Dictation CONSTITUTIONAL: NEGATIVE EXCEPT FOR HPI HEAD/FACE: NEGATIVE EXCEPT FOR HPI EENT: NEGATIVE EXCEPT FOR HPI RESPIRATORY: NEGATIVE EXCEPT FOR HPI GASTROINTESTINAL/ABDOMINAL: NEGATIVE EXCEPT FOR HPI GENITOURINARY: NEGATIVE EXCEPT FOR HPI MUSCULOSKELETAL: NEGATIVE EXCEPT FOR HPI INTEGUMENTARY: NEGATIVE EXCEPT FOR HPI NEUROLOGICAL/PSYCH: NEGATIVE EXCEPT FOR HPI GENERALIZED HEADACHE HEMATOLOGIC/LYMPHATIC: NEGATIVE EXCEPT FOR HPI ALL SYSTEMS NEGATIVE, EXCEPT NOTED ABOVE. 13 POINT REVIEW OF SYSTEMS ASSESSED AND ALL NEGATIVE EXCEPT FOR ABOVE. Initial Vital Sign VS Vital Signs Date Time Temp Pulse Resp B/P (MAP) Pulse Ox O2 Delivery O2 Flow Rate FiO2 02/09/25 13:15 97.9 68 20 180/96 98 Room Air 0 Physical Exam Dictation VITAL SIGNS REVIEWED GENERAL APPEARANCE: ALERT, ORIENTED X 3, MILD ACUTE DISTRESS, WELL DEVELOPED, NOURISHED. HEAD AND FACE: NON-TRAUMATIC. EYES: PERRL, PINK CONJUNCTIVAS, EYELID NO TRAUMA, ANTERIOR CHAMBER WITH ARCUS SENILIS. NO ESCALERA OR RACCOON SIGN EARS: PINNAS INTACT AND NO SIGNS OF TRAUMA OR ERYTHEMA EAR CANALS CLEAR AND NO DISCHARGE TM NO ERYTHEMA NO HEMOTYMPANUM NOSE: NO DISCHARGE, NO BLEEDING. OROPHARYNX: MOUTH NORMAL, TONGUE PINK, PHARYNX CLEAR,NO ERYTHEMA, TONSILS NO EXUDATES, NO ABSCESSES NOTED, MUCOUS MEMBRANE MOIST NECK: SUPPLE, NON-TENDER, NO THYROMEGALY, NO MASSES, NO JVD, NO BRUITS BREAST:DEFERRED CHEST:NO TENDERNESS, NO CREPITUS, NO PARADOXICAL MOVEMENT, NO RETRACTIONS LUNGS:CLEAR, WELL-VENTILATED, SYMMETRIC, NO RALES, NO WHEEZING, NO RHONCHI, NO STRIDOR, GOOD BREATH SOUNDS BILATERALLY HEART: REGULAR RATE, REGULAR RHYTHM, NO MURMUR, NO GALLOPS VASCULAR: NO PERIPHERAL EDEMA, ABDOMEN: SOFT, POSITIVE BOWEL SOUNDS, NONDISTENDED, NO GUARDING, NONTENDER, NO REBOUND, NO MASSES NO HEPATOMEGALY, NO SPLENOMEGALY, NO MANRIQUE'S SIGN, NO HERNIAS. RECTAL: DEFERRED GENITAL: DEFERRED NEUROLOGICAL: NORMAL SPEECH, MOTOR FUNCTION INTACT, SENSORY FUNCTION INTACT NIH IS 0 AND PATIENT IS INTACT PER HER SON. MUSCULOSKELETAL: NECK NONTENDER, FULL RANGE OF MOTION, BACK NONTENDER, FULL RANGE OF MOTION, EXTREMITIES: NONTENDER, FULL RANGE OF MOTION SKIN: COLOR PINK, DRY, NO TURGOR, NO RASH, NO LACERATIONS, NO ABRASIONS, NO CONTUSIONS. LYMPHATIC: DEFERRED Results (Laboratory/Radiology) Laboratory/Radiology STUDY CT Head without intravenous contrast. HISTORY Continuous headache status post fall with head injury for several days. TECHNIQUE Axial computed tomography images of the head/brain were obtained without intravenous contrast. COMPARISON No prior head CT available for comparison. FINDINGS BRAIN PARENCHYMA There is age-appropriate diffuse cerebral volume loss with corresponding prominence of the sulci and ventricles. Scattered small hypodense foci are present in the bilateral frontoparietal deep and subcortical white matter, compatible with chronic microangiopathic ischemic changes. No evidence of acute intracranial hemorrhage, mass lesion, acute territorial infarct, midline shift, or extra-axial fluid collection is identified. VENTRICLES AND EXTRA-AXIAL SPACES The ventricles are normal in configuration and size for the degree of cerebral volume loss. Basal cisterns are patent without effacement. ORBITS The globes and orbits are unremarkable. PARANASAL SINUSES AND MASTOIDS The visualized paranasal sinuses and mastoid air cells are clear. CALVARIUM AND SKULL BASE No calvarial or skull base fracture is identified. No destructive osseous lesion is seen. SCALP AND OTHER SOFT TISSUES The visualized scalp and extracranial soft tissues are unremarkable. IMPRESSION * No acute intracranial abnormality to account for post-traumatic headache, specifically no acute hemorrhage, mass effect, or CT evidence of acute territorial infarct. * Age-appropriate diffuse cerebral volume loss with mild chronic microangiopathic ischemic changes in the bilateral frontoparietal white matter. /[facility] Reviewed?: Yes ED Course ED Course Orders Procedure Category Date Status Time Acetaminophen 500mg PHA 02/09/25 Complete Tab (Tylenol 500mg T 13:30 Ct Head/Brain W/O CT 02/09/25 Resulted Contrast 13:20 Current Medications Medications (Trade) Dose Ordered Sig/Gurpreet Route PRN Reason Start Time Stop Time Status Last Admin Dose Admin Acetaminophen (TYLenol 500MG TAB) 1,000 mg ONCE ONCE PO 02/09/25 13:30 02/09/25 13:31 DC Vital Signs Date Time Temp Pulse Resp B/P (MAP) Pulse Ox O2 Delivery O2 Flow Rate FiO2 02/09/25 13:15 97.9 68 20 180/96 98 Room Air 0 1330/DUE TO PATIENT'S ADVANCED AGE AND HISTORY OF LOC WITH A PRIOR FALL. ALSO, SHE IS HAVING CONTINUOUS HEADACHE SINCE A FALL I WE WILL BE SCAN OF THE HEAD TO RULE OUT A BLEED OR SUBDURAL HEMATOM 1525 SPOKE WITH PATIENT AND SON AT BEDSIDE. THEY ARE AWARE OF THE CT FINDINGS. PATIENT REMAINS NEUROLOGICALLY INTACT SPEECH IS CLEAR AGAIN, PATIENT SON STATES SHE IS BASELINE IN HER NEURO FUNCTION. Medical Decision Making MDM DECISION BASED ON CT OF THE HEAD AFTER HPI AND COMPLAIN OF CHRONIC HEADACHE STATUS POST FALL WITH A HEAD INJURY. PATIENT WAS NEUROLOGICALLY INTACT ON APPROACH ACCORDING TO HER SON, NIH WAS 0 CT IS NEGATIVE EXCEPT FOR CHRONIC CHANGES PATIENT DISCHARGED HOME NEUROLOGICALLY INTACT PER HER SON TOLD KEEP HER APPOINTMENT WITH DR. CISNEROS HER PRIMARY CARE DOCTOR IN THE NEXT SEVERAL DAYS. DX & DISP Disposition: Discharge Departure Impression: Primary Impression: Posttraumatic headache Additional Impressions: Head trauma, Fall Condition: Stable Additional Instructions: FOLLOW-UP WITH PRIMARY CARE PROVIDER IN 1 TO 2 DAYS. TAKE MEDICATIONS DIRECTED HERE IN THE EMERGENCY ROOM. OKAY TO CONTINUE HOME MEDICATIONS UNLESS OTHERWISE DISCUSSED DURING YOUR VISIT IN THE EMERGENCY ROOM TODAY. RETURN TO YOUR NEAREST EMERGENCY ROOM IF SYMPTOMS WORSEN OR IF THERE IS NO IMPROVEMENT. CALL 911 IF YOU NEED IMMEDIATE ASSISTANCE. TAKE TYLENOL OR MOTRIN [id number] NEEDED AND IF NO CONTRAINDICATIONS ARE PRESENT. INCREASE ORAL HYDRATION. A WOUND CULTURE OR URINE CULTURE WAS ORDERED HERE IN THE EMERGENCY ROOM DEPARTMENT PLEASE FOLLOW-UP WITH PRIMARY CARE PROVIDER AND ADVISE THEM TO GET REPEAT PORTS FROM OUR FACILITY. IF YOU HAD ANY MOODY WRAP/SPLINTS THAT WERE APPLIED HERE, PLEASE DO NOT REMOVE THEM UNTIL YOU SEE YOUR PRIMARY CARE OR SPECIALTY. DIET AND ACTIVITY TOLERATED. TAKE TYLENOL NEEDED FOR PAIN. SEE YOUR PRIMARY CARE DOCTOR IN THE NEXT ONE TWO DAYS FOR FOLLOW UP AND MANAGEMENT. Referrals: LINDA SHEA MD (PCP) Time of Disposition: 15:26 I have reviewed the case, and I agree with, Diagnosis and Plan CURTIS PATTERSON Feb 09, 2025 13:23
--- NOTE | 2025-02-09 14:21 | NUR ---
PT TO CT SCAN
--- NOTE | 2025-02-09 14:59 | HMCIMG ---
STUDY CT Head without intravenous contrast. HISTORY Continuous headache status post fall with head injury for several days. TECHNIQUE Axial computed tomography images of the head/brain were obtained without intravenous contrast. COMPARISON No prior head CT available for comparison. FINDINGS BRAIN PARENCHYMA There is age-appropriate diffuse cerebral volume loss with corresponding prominence of the sulci and ventricles. Scattered small hypodense foci are present in the bilateral frontoparietal deep and subcortical white matter, compatible with chronic microangiopathic ischemic changes. No evidence of acute intracranial hemorrhage, mass lesion, acute territorial infarct, midline shift, or extra-axial fluid collection is identified. VENTRICLES AND EXTRA-AXIAL SPACES The ventricles are normal in configuration and size for the degree of cerebral volume loss. Basal cisterns are patent without effacement. ORBITS The globes and orbits are unremarkable. PARANASAL SINUSES AND MASTOIDS The visualized paranasal sinuses and mastoid air cells are clear. CALVARIUM AND SKULL BASE No calvarial or skull base fracture is identified. No destructive osseous lesion is seen. SCALP AND OTHER SOFT TISSUES The visualized scalp and extracranial soft tissues are unremarkable. IMPRESSION * No acute intracranial abnormality to account for post-traumatic headache, specifically no acute hemorrhage, mass effect, or CT evidence of acute territorial infarct. * Age-appropriate diffuse cerebral volume loss with mild chronic microangiopathic ischemic changes in the bilateral frontoparietal white matter. /[place]
--- NOTE | 2025-02-09 15:41 | NUR ---
PT AND FAMILY LEFT PRIOR TO BE GIVEN D/C PRINTED INSTRUCTIONS. FAMILY ESCORTED PT OUT.
== END 2025-02-09 15:44 | disposition home or self-care (01) ==
LOC: EDH 13:14
DX: S09.90XA Unspecified injury of head, initial encounter (principal); G44.309 Post-traumatic headache, unspecified, not intractable; I10 Essential (primary) hypertension; F03.90 Unspecified dementia, unspecified severity, without behavioral disturbance, psychotic disturbance, mood disturbance, and anxiety; Z79.899 Other long term (current) drug therapy; W18.39XA Other fall on same level, initial encounter; Y93.89 Activity, other specified; Y92.89 Other specified places as the place of occurrence of the external cause; Y99.8 Other external cause status
CPT/HCPCS: 70450; 99284